=== PATIENT | male | born 1965 | race Caucasian/White ===

== ENCOUNTER 2017-08-08 16:01 | Emergency (ER) | payer MEDICARE, MEDICAID ==
[~2017-08-08] VITALS: Ht 167.6 cm; Wt 101.0 kg
[~2017-08-08 16:01] MED LIST: ACET500C15 PO; AMLO2.5T2 PO; ASPI-496 PO; CHOL5000 PO; CYAN200014 PO; DORZ10DR21 EACHEYE; EPINEPHRINE SYRINGE 0.1 MG/ML, 10ML ONE; FENO150C4 PO; FENO160T PO; GABA600T2 PO; GEMF600T3 PO; METO50TA82 PO; MULT-750 PO; OMEG300C PO; ROSU20TA PO; TRAV5DRO EACHEYE; TRIA1CAP3 PO
[2017-08-08] MEDS ORDERED: SODIUM BICARB 8.4%, 50ML SYRINGE ONE (16:22)
[2017-08-08] MEDS ORDERED: EPINEPHRINE SYRINGE 0.1 MG/ML, 10ML ONE (16:22)
[2017-08-08] MEDS ORDERED: CODE BLUE RESPONSE XX ONE (16:22)
[2017-08-08] MEDS ORDERED: ATROPINE SYRINGE 0.1 MG/ML, 10ML ONE (16:22)
[2017-08-08] MEDS ORDERED: BACITRACIN ZINC OINT 500U/GM, 0.9 GM ONE (16:24)
== END 2017-08-08 19:15 | disposition expired ==
LOC: ED 16:17
DX: I46.9 Cardiac arrest, cause unspecified (principal); R09.02 Hypoxemia; I10 Essential (primary) hypertension; J44.9 Chronic obstructive pulmonary disease, unspecified; Z87.891 Personal history of nicotine dependence
CPT/HCPCS: 92950; 99291; J0461